=== PATIENT | male | born 1960 | race Caucasian/White ===

== ENCOUNTER 2017-08-13 09:11 | Emergency (ER) | payer OTHER ==
[~2017-08-13] VITALS: Ht 177.8 cm; Wt 78.0 kg
[2017-08-13 09:41] VITALS: BP 157/80; PULSE 71; RESP 18; TEMP 98; O2SAT 97
[2017-08-13 11:09] LABS: AUTOMATED NEUTROPHIL # 3.6 TH/MM3 (1.8-7.7); BASOPHIL % 0.4 % (0.0-2.0); EOSINOPHIL # 0.2 TH/MM3 (0-0.4); EOSINOPHIL % 2.1 % (0.0-4.0); HEMATOCRIT 46.1 % (39.0-51.0); HEMOGLOBIN 16.5 GM/DL (13.0-17.0); LYMPH % 38.3 % (9.0-44.0); LYMPHOCYTE # 2.7 TH/MM3 (1.0-4.8); MEAN CELL VOLUME 89.6 FL (80.0-100.0); MEAN CORPUSCULAR HEMOGLOBIN 32.1 PG (27.0-34.0); MEAN CORPUSCULAR HGB CONC 35.8 % (32.0-36.0); MEAN PLATELET VOLUME 8.1 FL (7.0-11.0); MONO % 8.6 % (0.0-8.0); MONOCYTE # 0.6 TH/MM3 (0-0.9); NEUT % 50.6 % (16.0-70.0); PLATELET COUNT 205 TH/MM3 (150-450); RED BLOOD COUNT 5.15 MIL/MM3 (4.50-5.90); RED CELL DISTRIBUTION WIDTH 13.1 % (11.6-17.2); WHITE BLOOD COUNT 7.1 TH/MM3 (4.0-11.0)
[2017-08-13 11:23] LABS: ALBUMIN 4.2 GM/DL (3.4-5.0); BLOOD UREA NITROGEN 10 MG/DL (7-18); CALCIUM 8.1 MG/DL (8.5-10.1); CHLORIDE 106 MEQ/L (98-107); CREATININE 1.23 MG/DL (0.60-1.30); GLOMERULAR FILTRATION RATE 61 ML/MIN (>89); GLUCOSE,RANDOM 104 MG/DL (74-106); SODIUM (NA) 143 MEQ/L (136-145)
[2017-08-13 11:24] LABS: ALT (GPT) 37 U/L (12-78)
[2017-08-13 11:34] LABS: ALKALINE PHOSPHATASE 89 U/L (45-117); AST (GOT) 28 U/L (15-37); TOTAL BILIRUBIN ADULT 0.5 MG/DL (0.2-1.0); TOTAL PROTEIN 7.4 GM/DL (6.4-8.2)
--- NOTE | 2017-08-13 11:46 | PD ---
HPI Chief Complaint: Psychiatric Symptoms Time Seen by Provider: 11:32 Travel History International Travel<30 days: No Contact w/Intl Traveler<30days: No Traveled to known affect area: No History of Present Illness HPI 56-year-old male is brought to the emergency department under [employer] act for psychiatric evaluation. Patient states he does not know why he is here. He is drinking alcohol last evening and he was sleeping. He states he was sleep talking and he does not even know what he said but his roommate contact police and he was brought into the emergency department. Patient denies suicidal and homicidal ideations. Reports history of diabetes and hypertension. Reports no recent illnesses. He has no other symptoms to report. PFSH Past Medical History Cardiovascular Problems: Yes Diabetes: Yes Patient Takes Glucophage: No Diminished Hearing: No Tetanus Vaccination: < 5 Years Social History Alcohol Use: Yes (9 BEERS LAST NIGHT) Tobacco Use: Yes (1 PPD) Substance Use: Yes Allergies-Medications (Allergen,Severity, Reaction): Coded Allergies: fluoxetine (Unverified Allergy, Severe, Anaphylaxis, 08/13/17) Reported Meds & Prescriptions Reported Meds & Active Scripts Active No Active Prescriptions or Reported Medications Review of Systems Except as stated in HPI: all other systems reviewed are Neg Physical Exam Narrative GENERAL: Well-nourished male patient with bizarre affect, but in no acute distress. SKIN: Focused skin assessment warm/dry. HEAD: Atraumatic. Normocephalic. EYES: Pupils equal and round. No scleral icterus. No injection or drainage. ENT: No nasal bleeding or discharge. Mucous membranes pink and moist. NECK: Trachea midline. No JVD. CARDIOVASCULAR: Regular rate and rhythm. No murmur appreciated. RESPIRATORY: No accessory muscle use. Expiratory wheeze to auscultation. Breath sounds equal bilaterally. GASTROINTESTINAL: Abdomen soft, non-tender, nondistended. Hepatic and splenic margins not palpable. MUSCULOSKELETAL: No obvious deformities. No clubbing. No cyanosis. No edema. NEUROLOGICAL: Awake and alert. No obvious cranial nerve deficits. Motor grossly within normal limits. Normal speech. Data Data Last Documented VS Vital Signs Date Time Temp Pulse Resp B/P (MAP) Pulse Ox O2 Delivery O2 Flow Rate FiO2 08/13/17 09:41 98.0 71 18 157/80 (105) 97 Orders Orders Complete Blood Count With Diff (08/13/17 09:19) Comprehensive Metabolic Panel (08/13/17 09:19) Thyroid Stimulating Hormone (08/13/17 09:19) Psych Screen (08/13/17 09:19) Drug Screen, Random Urine (08/13/17 09:19) Alcohol (Ethanol) (08/13/17 09:19) Diet Regular Basic (08/13/17 Lunch) Labs Laboratory Tests Test 08/13/17 09:50 White Blood Count 7.1 TH/MM3 Red Blood Count 5.15 MIL/MM3 Hemoglobin 16.5 GM/DL Hematocrit 46.1 % Mean Corpuscular Volume 89.6 FL Mean Corpuscular Hemoglobin 32.1 PG Mean Corpuscular Hemoglobin Concent 35.8 % Red Cell Distribution Width 13.1 % Platelet Count 205 TH/MM3 Mean Platelet Volume 8.1 FL Neutrophils (%) (Auto) 50.6 % Lymphocytes (%) (Auto) 38.3 % Monocytes (%) (Auto) 8.6 % Eosinophils (%) (Auto) 2.1 % Basophils (%) (Auto) 0.4 % Neutrophils # (Auto) 3.6 TH/MM3 Lymphocytes # (Auto) 2.7 TH/MM3 Monocytes # (Auto) 0.6 TH/MM3 Eosinophils # (Auto) 0.2 TH/MM3 Basophils # (Auto) 0.0 TH/MM3 CBC Comment DIFF FINAL Differential Comment Blood Urea Nitrogen 10 MG/DL Creatinine 1.23 MG/DL Random Glucose 104 MG/DL Total Protein 7.4 GM/DL Albumin 4.2 GM/DL Calcium Level 8.1 MG/DL Alkaline Phosphatase 89 U/L Aspartate Amino Transf (AST/SGOT) 28 U/L Alanine Aminotransferase (ALT/SGPT) 37 U/L Total Bilirubin 0.5 MG/DL Sodium Level 143 MEQ/L Potassium Level 3.7 MEQ/L Chloride Level 106 MEQ/L Carbon Dioxide Level 28.0 MEQ/L Anion Gap 9 MEQ/L Estimat Glomerular Filtration Rate 61 ML/MIN Thyroid Stimulating Hormone 3rd Gen 1.850 uIU/ML Urine Opiates Screen NEG Urine Barbiturates Screen NEG Urine Amphetamines Screen NEG Urine Benzodiazepines Screen NEG Urine Cocaine Screen POS Urine Cannabinoids Screen NEG Ethyl Alcohol Level 170 MG/DL MDM Medical Decision Making Medical Screen Exam Complete: Yes Emergency Medical Condition: Yes Medical Record Reviewed: Yes Differential Diagnosis Substance abuse versus mood disorder versus personality disorder versus adjustment reaction disorder Narrative Course 56-year-old male presents to emergency department for evaluation under [employer] act. Patient appears without distress. He denies suicidal and homicidal ideations. Lab work is complete and reviewed by me. It is unremarkable. Patient is medically cleared to undergo psychiatric screening for further evaluation. Mental health screening discussed with the patient. Psychiatric screen ordered. Diagnosis Primary Impression: Substance induced mood disorder Scripts No Active Prescriptions or Reported Meds Condition: Elizabeth Nguyen Aug 13, 2017 11:45
[2017-08-13 17:10] VITALS: BP 170/88; PULSE 75; RESP 18; TEMP 98.9; O2SAT 98
--- NOTE | 2017-08-13 20:36 | PD ---
History of Present Illness Chief Complaint: Psychiatric Symptoms Time Seen by Provider: 20:15 Travel History International Travel<30 Days: No Contact w/Intl Traveler<30days: No Known affected area: No Legal Status Legal Status: iNeed History of Present Illness: History of Present Illness HPI 56-year-old male with history of alcohol abuse, cocaine abuse, who is brought to the emergency department under [employer] act for psychiatric evaluation. The [employer] act alleges that the patient made some statements that were of concern to his roommate who in turn called the police and the patient was placed under the [employer] act. The patient reports that she had a little bit much to drink and that he believes he was having a bad dream and he was talking in his sleep. He does not remember what he said. The patient was intoxicated when he arrived on the at the ED his blood alcohol level was 170 and his toxicology was positive for cocaine. Patient was monitored in secure environment until he was clinically sober. He presented no behavioral concerns and no suicidality. Electronic medical record is reviewed. The patient was evaluated on September 2016 under [employer] act as well in context of substance intoxication. Patient is seen. At this time he is clinically sober. He is calm and engaging. He is cooperative. His speech is clear and logical. There is no gait impairment. There is no evidence of any hallucinations, no delusions, no paranoia. There is no andres or hypomania. He denies any suicidal or homicidal ideation, intent or plan. Remainder of the psychiatric review systems is negative. PFSH Past Medical History Cardiovascular Problems: Yes Diabetes: Yes Patient Takes Glucophage: No Diminished Hearing: No Tetanus Vaccination: < 5 Years Psychiatric History Psychiatric History Hx Psychiatric Treatment: REPORTS HE HAS A HISTORY OF DRUG AND ALCOHOL ABUSE. 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 Currently living with roommates. He Hx Alcohol Use: Yes (9 BEERS LAST NIGHT) Hx Tobacco Use: Yes (1 PPD) Hx Substance Use: Yes Hx of Substance Use Treatment: Yes Family Psychiatric History Negative. Allergies-Medications (Allergen,Severity, Reaction): Coded Allergies: fluoxetine (Unverified Allergy, Severe, Anaphylaxis, 08/13/17) Reported Meds & Prescriptions Reported Meds & Active Scripts Active No Active Prescriptions or Reported Medications Review of Systems Psychiatric: DENIES: Anxiety, Confusion, Mood changes, Depression, Hallucinations, Agitation, Suicidal Ideation, Homicidal Ideation, Delusions Except as stated in HPI: all other systems reviewed are Neg Mental Status Examination Appearance: Appropriate (In hospital) Consciousness: Alert Orientation: x4 Motor Activity: Normal gait Speech: Unremarkable Language: Adequate Fund of Knowledge: Adequate Attention and Concentration: Adequate Memory: Unremarkable Mood: Appropriate Affect: Appropriate Thought Process & Associations: Intact, Logical, Goal directed Thought Content: Appropriate Hallucination Type: None Delusion Type: None Suicidal Ideation: No Suicidal Plan: No Suicidal Intention: No Homicidal Ideation: No Homicidal Plan: No Homicidal Intention: No Insight: Fair Judgment: Adequate MDM Medical Decision Making Medical Record Reviewed: Yes Assessment/Plan 56-year-old male with history of alcohol abuse, cocaine abuse, who is brought to the emergency department under [employer] act for psychiatric evaluation. The [employer] act alleges that the patient made some statements that were of concern to his roommate who in turn called the police and the patient was placed under the [employer] act. The patient reports that she had a little bit much to drink and that he believes he was having a bad dream and he was talking in his sleep. He does not remember what he said. The patient was intoxicated when he arrived on the at the ED his blood alcohol level was 170 and his toxicology was positive for cocaine. Patient was monitored in secure environment until he was clinically sober. He presented no behavioral concerns and no suicidality. BA is lifted. Psychoeducation provided. No psychiatric follow-up required. Encourage sobriety and AA. Psychiatrically clear for discharge from the ED. Orders Orders Complete Blood Count With Diff (08/13/17 09:19) Comprehensive Metabolic Panel (08/13/17 09:19) Thyroid Stimulating Hormone (08/13/17 09:19) Psych Screen (08/13/17 09:19) Drug Screen, Random Urine (08/13/17:19) Alcohol (Ethanol) (08/13/17 09:19) Diet Regular Basic (08/13/17 Lunch) Results Vital Signs Date Time Temp Pulse Resp B/P (MAP) Pulse Ox O2 Delivery O2 Flow Rate FiO2 08/13/17 20:31 08/13/17 17:10 98.9 75 18 170/88 (115) 98 Room Air 08/13/17 09:41 98.0 71 18 157/80 (105) 97 Laboratory Tests Test 08/13/17 09:50 White Blood Count 7.1 Red Blood Count 5.15 Hemoglobin 16.5 Hematocrit 46.1 Mean Corpuscular Volume 89.6 Mean Corpuscular Hemoglobin 32.1 Mean Corpuscular Hemoglobin Concent 35.8 Red Cell Distribution Width 13.1 Platelet Count 205 Mean Platelet Volume 8.1 Neutrophils (%) (Auto) 50.6 Lymphocytes (%) (Auto) 38.3 Monocytes (%) (Auto) 8.6 Eosinophils (%) (Auto) 2.1 Basophils (%) (Auto) 0.4 Neutrophils # (Auto) 3.6 Lymphocytes # (Auto) 2.7 Monocytes # (Auto) 0.6 Eosinophils # (Auto) 0.2 Basophils # (Auto) 0.0 CBC Comment DIFF FINAL Differential Comment Blood Urea Nitrogen 10 Creatinine 1.23 Random Glucose 104 Total Protein 7.4 Albumin 4.2 Calcium Level 8.1 Alkaline Phosphatase 89 Aspartate Amino Transf (AST/SGOT) 28 Alanine Aminotransferase (ALT/SGPT) 37 Total Bilirubin 0.5 Sodium Level 143 Potassium Level 3.7 Chloride Level 106 Carbon Dioxide Level 28.0 Anion Gap 9 Estimat Glomerular Filtration Rate 61 Thyroid Stimulating Hormone 3rd Gen 1.850 Urine Opiates Screen NEG Urine Barbiturates Screen NEG Urine Amphetamines Screen NEG Urine Benzodiazepines Screen NEG Urine Cocaine Screen POS Urine Cannabinoids Screen NEG Ethyl Alcohol Level 170 Diagnosis Primary Impression: Alcohol abuse Additional Impressions: Substance induced mood disorder Cocaine abuse Psychiatrically Cleared: Yes Med/ Other Pt Specific Info: No Meds Exist/No RX given Prescriptions No Active Prescriptions or Reported Meds Disposition: 01 DISCHARGE HOME Condition: Stable Problem Qualifiers Susan Velazco Aug 13, 2017 20:36
== END 2017-08-13 20:59 | disposition home or self-care (01) ==
LOC: NEDAMB 09:11 → NEPJ 20:59
DX: F10.14 Alcohol abuse with alcohol-induced mood disorder (principal); F14.10 Cocaine abuse, uncomplicated; E11.9 Type 2 diabetes mellitus without complications; F17.200 Nicotine dependence, unspecified, uncomplicated; Z88.8 Allergy status to other drugs, medicaments and biological substances
CPT/HCPCS: 80053; 80307; 84443; 85025; 99283